=== PATIENT | male | born 1940 | race Caucasian/White ===

== ENCOUNTER 2017-11-24 08:53 | Day surgery (SDC) | payer MEDICARE ==
[2017-11-18 08:30] VITALS: BP 150/69
[~2017-11-24] VITALS: Ht 177.8 cm; Wt 90.1 kg
[~2017-11-24 08:53] MED LIST: OMEP20TA62 PO; TAMS-11 PO
[2017-11-24] MEDS ORDERED: LACTATED RINGERS 1,000 ML IV SCH (09:23)
[2017-11-24] MEDS ORDERED: LIDOCAINE-MPF 1%, 2ML INFIL ONE (09:30)
[2017-11-24] MEDS ORDERED: FLAX1000 PO (09:37)
[2017-11-24] MEDS ORDERED: CALC1CAP8 PO (09:37)
[2017-11-24] MEDS ORDERED: MULT-658 PO (09:37)
[2017-11-24] MEDS ORDERED: ONDANSETRON ODT 8 MG PO STA (10:09)
[2017-11-24] MEDS ORDERED: GABAPENTIN 300 MG CAPSULE PO STA (10:09)
[2017-11-24] MEDS ORDERED: ACETAMINOPHEN 500 MG TABLET PO STA (10:09)
[2017-11-24] MEDS ORDERED: FENTANYL PF 250 MCG/5ML ONE (11:39)
[2017-11-24] MEDS ORDERED: MIDAZOLAM 1 MG/ML, 2ML ONE (11:39)
[2017-11-24] MEDS ORDERED: PROPOFOL 10 MG/ML, 20ML ONE (11:40)
[2017-11-24] MEDS ORDERED: LIDOCAINE-MPF 2% ,5ML ONE (11:40)
[2017-11-24] MEDS ORDERED: PHENYLEPHRINE 10 MG/ML ONE (11:41)
[2017-11-24] MEDS ORDERED: CIPROFLOXACIN/PMX 400MG/200ML 200 ML ONE (12:28)
[2017-11-24] MEDS ORDERED: DEXAMETHASONE 4 MG/ML, 1ML ONE (12:42)
[2017-11-24] MEDS ORDERED: LABETALOL 5MG/ML, 20ML IV PRN (13:00)
[2017-11-24] MEDS ORDERED: PROMETHAZINE 25 MG/ML, 1ML IV PRN (13:00)
[2017-11-24] MEDS ORDERED: HYDROmorphone 1 MG/ML, 1ML IV PRN (13:00)
[2017-11-24] MEDS ORDERED: FENTANYL PF 100 MCG/2ML IV PRN (13:00)
[2017-11-24] MEDS ORDERED: OXYcodone 5 MG/5 ML ORAL.SOL UDC PO PRN (13:00)
[2017-11-24] MEDS ORDERED: MEPERIDINE/PF 25MG/0.5ML IVPush PRN (13:00)
[2017-11-24] MEDS ORDERED: HALOPERIDOL 5 MG/ML IV PRN (13:00)
[2017-11-24] MEDS ORDERED: hydrALAzine 20 MG/ML, 1ML IV PRN (13:00)
[2017-11-24] MEDS ORDERED: PHENAZOPYRIDINE 200 MG TABLET ONE (13:51)
[2017-11-24] MEDS ORDERED: OXYcodone/APAP 5/325MG TABLET PO PRN (14:00)
[2017-11-24] MEDS ORDERED: PHENAZOPYRIDINE 200 MG TABLET PO ONE (14:00)
== END 2017-11-24 16:50 ==
LOC: OUT 08:53
PROVIDERS: ATTEND Urology
DX: N40.0 Benign prostatic hyperplasia without lower urinary tract symptoms (principal); K21.9 Gastro-esophageal reflux disease without esophagitis; E78.00 Pure hypercholesterolemia, unspecified; N18.9 Chronic kidney disease, unspecified; Z88.8 Allergy status to other drugs, medicaments and biological substances
CPT/HCPCS: 52648; J0744; J1100; J2250; J2370; J2704; J3010; J3490; J7120; Q0162

== ENCOUNTER 2019-08-20 19:28 | Observation (INO) | payer MEDICARE ==
[~2019-08-20] VITALS: Ht 175.3 cm; Wt 83.0 kg
[~2019-08-20 19:28] MED LIST changes: -ATOR20TA37 PO; -LISI-167 PO; -PANT40TA5 PO
--- NOTE | 2019-08-20 20:10 | NUR ---
THIS IS AN 79 YO MALE WHO PRESENTS TO THE ER C/O ABD PAIN X 3 MONTHS[address] PT HAD OUTPATIENT CT SCAN AND WAS SENT HERE BY [facility] FOR "FREE AIR" IN HIS ABDOMEN. PT REPORTS 2/10 BILAT LOWER ABD PAIN MINIMALLY TENDER TO PALP. PT REPORTS HE IS PASSING GAS AND HAVING REGULAR BM'S. BOWEL SOUNDS ACTIVE IN ALL 4 QUADS. PT AO X 4. SKIN PWD. RESP EVEN AND UNLABORED.
--- NOTE | 2019-08-20 20:30 | NUR ---
SEBAS ORNELAS AT BEDSIDE FOR EVAL. AWAITING ORDERS.
--- NOTE | 2019-08-20 21:24 | NUR ---
PT CURRENTLY RESTING ON GURNEY. NO ACUTE DISTRESS NOTED AT THIS TIME. PT AO X 4. SKIN PWD. RESP EVEN AND UNLABORED. PT AWARE WE ARE WAITING FOR ORDERS. PT ON CONT BP AND O2 MONITORS. PT DENIES NEEDS AT THIS TIME. CALL LIGHT WITHIN REACH. WILL CONT TO MONITOR PT.
[2019-08-20] MEDS ORDERED: SODIUM CHLORIDE FLUSH 10ML SYR IVF ONE (22:00)
--- NOTE | 2019-08-20 22:02 | NUR ---
REPORT TO MARLO PRESLEY WHO ASSUMED CARE OF PT.
--- NOTE | 2019-08-20 22:12 | NUR ---
RECEIVED BEDSIDE REPORT AND CARE FROM [facility] SELLERS. CARE ASSUMED. PT UP AND AMBULATORY TO RESTROOM WITH STEADY GAIT WITH MARLO SUN, CLEAN CATCH UA COLLECTED BY DINO SELLERS AND SENT TO LAB. PT ON PHONE WITH SPOUSE TO GET COMPLETE MED REC INFORMATION.
[2019-08-20 22:15] LABS: BASOPHILS # (AUTO) 0.04 x10^3/uL (0-0.1); BASOPHILS % (AUTO) 1 % (0-1); EOSINOPHILS # (AUTO) 0.37 x10^3/uL (0-0.4); EOSINOPHILS % (AUTO) 5 % (1-7); LYMPHOCYTES # (AUTO) 2.66 x10^3/uL (1-3.4); LYMPHOCYTES % (AUTO) 33 % (22-44); MD NO; MEAN CORPUSCULAR HEMOGLOBIN 31.3 pg (27.5-34.5); MEAN CORPUSCULAR HGB CONC 33.7 g/dL (33.2-36.2); MEAN CORPUSCULAR VOLUME 92.7 fL (81-97); MEAN PLATELET VOLUME 7.8 fL (7.4-10.4); MONOCYTES # (AUTO) 0.52 x10^3/uL (0.2-0.8); MONOCYTES % (AUTO) 7 % (2-9); NEUTROPHILS # (AUTO) 4.43 x10^3/uL (1.8-6.8); NEUTROPHILS % (AUTO) 55 % (42-75); PLATELET COUNT 149 x10^3/uL (130-400); RED BLOOD COUNT 4.74 x10^6/uL (4.38-5.82); RED CELL DISTRIBUTION WIDTH 14.3 % (9.4-14.8)
[2019-08-20 22:22] LABS: INTERNATIONAL NORMALIZED RATIO 0.98 (0.93-1.1); PROTHROMBIN TIME 10.4 Seconds (9.6-11.5)
[2019-08-20 22:24] LABS: ALBUMIN 3.6 g/dL (3.4-5.0); ANION GAP 5 mmol/L (5-15); CALCIUM 8.8 mg/dL (8.5-10.1); CHLORIDE 109 mmol/L (98-107); CREATININE 1.08 mg/dL (0.7-1.3)
--- NOTE | 2019-08-20 22:24 | NUR ---
[facility], ADMITTING PROVIDER AT BEDSIDE FOR EVAL, TO START IV PER ERP FOR ADMISSION
[2019-08-20] MEDS ORDERED: ATOR20TA37 PO (22:32)
[2019-08-20] MEDS ORDERED: LISI-167 PO (22:32)
[2019-08-20] MEDS ORDERED: PANT40TA5 PO (22:32)
[2019-08-20 22:44] LABS: CULTURE INDICATED? YES; MICROSCOPIC INDICATED
--- NOTE | 2019-08-20 22:52 | NUR ---
PT RESTING COMFORTABLY, WATCHING TV. DENIES NEED TO USE RESTROOM AND OFFER FOR BLANKET. UPDATED ON POC, VERBALIZED UNDERSTANDING, AGREES TO POC. AWAITING ROOM ON FLOOR. VSS. REPORTS "BARELY ANY PAIN, LIKE 06/18." REFUSES NEED FOR PAIN MEDICATION. FALL PRECAUTIONS IN PLACE. SIDE RAILS UPX2. A&OX4.
[2019-08-20] MEDS ORDERED: LABETALOL 5MG/ML, 20ML IVPush PRN (23:00)
[2019-08-20] MEDS ORDERED: DOCUSATE 100 MG CAPSULE PO PRN (23:00)
--- NOTE | 2019-08-20 23:06 | NUR ---
ROOM [id number] ASSIGNED, VERBAL/PHONE REPORT GIVEN TO FLOOR RN SOLIS AT THIS TIME. PT READY FOR TRANSPORT.
[2019-08-20 23:30] VITALS: BP 131/69
[2019-08-20] MEDS: LACTATED RINGERS 1,000 ML IV SCH (23:35)
[2019-08-21 03:59] VITALS: BP 118/58
[2019-08-21 08:00] VITALS: BP 133/67
[2019-08-21] MEDS: OMEGA-3/FISH OIL CAPSULE PO SCH (09:00)
[2019-08-21] MEDS: PANTOPRAZOLE 40MG TABLET PO SCH ×2 (09:00→21:25)
[2019-08-21] MEDS: LISINOPRIL 10 MG TABLET PO SCH (09:00)
[2019-08-21] MEDS: ASPIRIN 81 MG TABLET EC PO SCH (09:00)
[2019-08-21] MEDS: MULTIVITAMIN 1 TABLET PO SCH (09:00)
[2019-08-21] MEDS: CALCIUM/VITAMIN D3 250-125 TABLET PO SCH (09:00)
[2019-08-21] MEDS: LACTATED RINGERS 1,000 ML IV SCH ×3 (09:52→21:25)
[2019-08-21 13:08] VITALS: BP 145/64
[2019-08-21 19:00] VITALS: BP 129/61
[2019-08-21] MEDS ORDERED: ATORVASTATIN 20 MG TABLET PO SCH (21:00)
[2019-08-21] MEDS ORDERED: ENOXAPARIN 40 MG/0.4 ML SQ SCH (23:00)
[2019-08-22 05:25] VITALS: BP 122/56
[2019-08-22 06:47] VITALS: BP 103/55
[2019-08-22] MEDS: PANTOPRAZOLE 40MG TABLET PO SCH (07:35)
[2019-08-22] MEDS: CALCIUM/VITAMIN D3 250-125 TABLET PO SCH (07:37)
[2019-08-22] MEDS: ASPIRIN 81 MG TABLET EC PO SCH (07:37)
[2019-08-22] MEDS: OMEGA-3/FISH OIL CAPSULE PO SCH (07:39)
[2019-08-22] MEDS: LISINOPRIL 10 MG TABLET PO SCH (07:39)
[2019-08-22] MEDS: MULTIVITAMIN 1 TABLET PO SCH (07:39)
[2019-08-22 07:41] VITALS: BP 127/66
== END 2019-08-22 11:00 | disposition home or self-care (01) ==
LOC: ED 20:34 → EDIP 21:51 → INTOOBSV 21:51 → 4NE 23:15 → DCLOUNGE 08-22 10:40
PROVIDERS: ADMIT Internal Medicine; ATTEND Internal Medicine
DX: K66.8 Other specified disorders of peritoneum (principal); E78.5 Hyperlipidemia, unspecified; I10 Essential (primary) hypertension; N40.1 Benign prostatic hyperplasia with lower urinary tract symptoms; K21.9 Gastro-esophageal reflux disease without esophagitis; Z90.49 Acquired absence of other specified parts of digestive tract; Z91.013 Allergy to seafood; Z79.899 Other long term (current) drug therapy; Z79.82 Long term (current) use of aspirin
CPT/HCPCS: 36415; 74018; 74176; 80048; 81001; 82040; 85025; 85610; 87086; 99285; G0378; J7120

== ENCOUNTER → 2019-08-20 | Outpatient (CLI) | payer MEDICARE ==
[~2019-08-20] MED LIST changes: +ASPI-496 PO; +ATOR20TA37 PO; +CALC-451 PO; +CALC1CAP8 PO; +FLAX10004 PO; +FLAX1CAP PO; +LISI-167 PO; +MULT-658 PO; +PANT40TA5 PO
== END | disposition home or self-care (01) ==
LOC: CFH 15:49
PROVIDERS: ATTEND Nurse Practitioner Family
DX: Z09 Encounter for follow-up examination after completed treatment for conditions other than malignant neoplasm (principal); R11.2 Nausea with vomiting, unspecified; R12 Heartburn; N28.1 Cyst of kidney, acquired; K57.30 Diverticulosis of large intestine without perforation or abscess without bleeding; Z85.038 Personal history of other malignant neoplasm of large intestine; Z90.49 Acquired absence of other specified parts of digestive tract
CPT/HCPCS: 74176

== ENCOUNTER → 2019-08-27 | Outpatient (CLI) | payer MEDICARE ==
[~2019-08-27] MED LIST changes: +ATOR20TA37 PO; +LISI-167 PO; +PANT40TA5 PO
== END | disposition home or self-care (01) ==
LOC: RAD 16:47
PROVIDERS: ATTEND Nurse Practitioner Family
DX: K66.8 Other specified disorders of peritoneum (principal)
CPT/HCPCS: 74176